=== PATIENT | male | born 1960 | race Caucasian/White ===

== ENCOUNTER 2018-02-20 18:10 | Emergency (ER) | payer OTHER ==
[~2018-02-20] VITALS: Ht 190.5 cm; Wt 98.9 kg
[~2018-02-20 18:10] MED LIST: TOBRADEX 0.1%-0.5 ML OPH
[2018-02-20] MEDS ORDERED: TOBRAMYCIN 5 ML5 M1 OPH (18:16)
[2018-02-20] MEDS ORDERED: ACULAR 0.5%3 ML OPH (18:16)
== END 2018-02-20 19:10 | disposition home or self-care (01) ==
LOC: ED 18:10
DX: T15.01XA Foreign body in cornea, right eye, initial encounter (principal); H16.133 Photokeratitis, bilateral; Z23 Encounter for immunization; W89.8XXA Exposure to other man-made visible and ultraviolet light, initial encounter; Y93.89 Activity, other specified; Y92.89 Other specified places as the place of occurrence of the external cause; Y99.8 Other external cause status; Z88.1 Allergy status to other antibiotic agents